=== PATIENT | female | born 1960 ===

== ENCOUNTER 2020-04-23 11:57 | Inpatient (IN) | payer MEDICARE, SELFPAY ==
[2020-04-23] VITALS (12 sets, daily range): BP systolic 121–172; BP diastolic 80–102; PULSE 65–67; RESP 14–19; TEMP 36.2–37.2; O2SAT 97–99
--- NOTE | 2020-04-23 12:19 | XRR_ITS ---
PROCEDURE INFORMATION: Exam: XR Chest, 1 View Exam date and time: 04/23/2020 12:27 PM Age: 60 years old Clinical indication: Other: HTN; Prior surgery; Surgery type: Pacemaker TECHNIQUE: Imaging protocol: XR of the chest Views: 1 view. COMPARISON: No relevant prior studies available. FINDINGS: Lungs: Unremarkable. No consolidation. Pleural space: Unremarkable. No pleural effusion. No pneumothorax. Heart/Mediastinum: The cardiac silhouette appears enlarged, some of which is magnification related to the AP projection.. Lucency about the right heart border and the superior mediastinum. Suspected prior interposition. Pneumo mediastinum felt less likely. Recommend two view chest. Vasculature: Pacemaker is present via a left subclavian approach.Surgical clips in the midline of the abdomen. Bones/joints: Unremarkable. Gastrointestinal tract: Air-filled bowel below the diaphragm XR/XR chest 1V portable [id number] IMPRESSION: Lucency about the right heart border and the superior mediastinum. Suspected prior interposition. Pneumo mediastinum felt less likely. Recommend two view chest.
--- NOTE | 2020-04-23 12:19 | ECG_ITS ---
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 Measurements Intervals [place] Rate: 67 P: [place]: -1 QRS: -90 QRSD: 108 T: 82 QT: 442 QTc: 468 Interpretive Statements UNCERTAIN IRREGULAR RHYTHM ELECTRONIC VENTRICULAR PACEMAKER -- CONTOUR ANALYSIS BASED ON INTRINSIC RHYTHM LEFT AXIS DEVIATION [QRS AXIS < -30] S1-S2-S3 PATTERN, CONSISTENT WITH PULMONARY DISEASE, RVH, OR NORMAL VARIANT INCOMPLETE RIGHT BUNDLE BRANCH BLOCK [90+ ms QRS DURATION, TERMINAL R IN V1/V2, 40+ ms S IN I/aVL/V4/V5/V6] ANTERIOR MYOCARDIAL INFARCTION , OF INDETERMINATE AGE [40+ ms Q WAVE AND/OR ST/T ABNORMALITY IN V3/V4] MODERATE T-WAVE ABNORMALITY, CONSIDER LATERAL ISCHEMIA [-0.1+ mV T WAVE IN I/aVL/V5/V6] No previous ECG available for comparison Electronically Signed On 04-23-2020 23:42:59 CDT by Vivian Krueger M.D. [id number]
--- NOTE | 2020-04-23 12:24 | W.ED.GENADLT ---
Documented by User: ADA Julian 04/23/20 12:25 HPI - General Adult General: Chief complaint: General Medical Stated complaint: high bp Time Seen by Provider: 04/23/20 12:10 History of Present Illness: HPI narrative: Patient states [place] and was told that prior to leaving that her pacemaker had a short battery life left. And she said she down to 2 days now and they decided they want to get the pacemaker battery changed here instead of going back down to that area. Patient said her blood pressure is up because her pacemaker is not functioning correctly. 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 Onset (ago): day(s) Associated symptoms: Deny chest pain, dyspnea, headache(s), nausea, rash or vomiting Review of Systems Const: Denies: fever(s), chills or body aches Eyes: Denies: change in vision or blurry vision ENMT: Denies: throat pain or nasal congestion Card: Reports: other (Hypertension); Denies: chest pain or dyspnea on exertion Resp: Denies: dyspnea, productive cough or non-productive cough GI: Denies: abdominal pain, nausea or vomiting Musc: Denies: extremity pain Skin/Breast: Denies: rash Neuro: Denies: headache(s) Psych: Denies: anxiety or depression Murali/Lymph: Denies: easy bruising Physical Exam Narrative: EXAM NARRATIVE: She has kind of a neurally scratchy voice from an damaged vocal cord Const: COMMON NORMALS: no acute distress, average body habitus and patient oriented x3 HENMT: COMMON NORMALS: normocephalic HEAD & SCALP: normal to inspection and normocephalic FACE & SINUS: normal facial exam Eye: COMMON NORMALS: conjunctivae normal GENERAL EYE: appearance normal, both eyes and all related structures CONJUNCTIVA: Yes conjunctivae normal Neck/C-Spine: COMMON NORMALS: no JVD Chest: COMMONS NORMALS: normal inspection of the chest Resp: COMMON NORMALS: normal respiratory effort and clear to auscultation bilaterally AUSCULTATION: clear to auscultation bilaterally Cardio: COMMON NORMALS: no JVD, regular rate and regular rhythm RATE: regular rate RHYTHM: regular rhythm GI: COMMON NORMALS: Normal to inspection, nondistended, normoactive bowel sounds present Extremity: COMMON NORMALS: normal to inspection and full ROM Neuro: COMMON NORMALS: patient oriented x3 Course Vital Signs: Vital signs: Vital Signs Temperature 97.2 F L 04/23/20 12:06 Pulse Rate 66 04/23/20 13:59 Respiratory Rate 18 04/23/20 13:59 Blood Pressure 121/86 04/23/20 13:59 Pulse Oximetry 98 04/23/20 13:59 MDM - General Adult Lab Data: Labs: Lab Results 04/23/20 04/23/20 04/23/20 Range/Units 12:50 12:50 12:50 WBC 4.8 (4.0-10.0) 10^3/ uL RBC 4.09 L (4.1-5.3) 10^6/u L Hgb 11.2 L (11.5-15.3) g/dL Hct 36.8 L (37.0-47.0) % MCV 90.0 (81-99) fL MCH 27.4 L (28.0-34.0) pg MCHC 30.4 (30.0-36.0) g/dL RDW 15.5 H (12.1-15.1) % Plt Count 285 (130-400) 10^3/c mm MPV 10.9 H (7.4-10.4) fL Neut % (Auto) 67.5 % Lymph % (Auto) 18.0 % [facility] % (Auto) 7.9 % Eos % (Auto) 5.4 % Baso % (Auto) 0.8 % Neut # (Auto) 3.26 (1.8-7.7) 10^3/u L Lymph # (Auto) 0.9 (0.8-4.8) 10^3/u L [facility] # (Auto) 0.4 (0.2-0.9) 10^3/u L Eos # (Auto) 0.3 (0.0-0.8) 10^3/u L Baso # (Auto) 0.0 (0.0-0.1) 10^3/u L Nucleated RBC % (a uto) 0 % Nucleated RBCs # 0.0 /100WBC PT 12.70 (12.1-14.9) SECO NDS INR 0.93 (0.8-1.2) Sodium 145 (136-145) mmol/L Potassium 3.6 (3.5-5.1) mmol/L Chloride 104 (98-107) mmol/L Carbon Dioxide 32 H (22-29) mmol/L Anion Gap 12.6 (5-19) BUN 11 (6-20) mg/dL Creatinine 0.7 (0.5-0.9) mg/dL GFR Calculation 85.6 L (90-130) mL/min Glucose 110 (65-115) mg/dL Calculated Osmolal ity 297 H (285-295) mOsm/k g Calcium 9.4 (8.5-10.5) mg/dL Total Bilirubin 0.2 (0.15-1.2) mg/dL AST 21 (0-32) U/L ALT 15 (0-33) U/L Alkaline Phosphata se 77 (35-105) IU/L Total Protein 6.4 L (6.6-8.7) g/dL Albumin 3.8 (3.5-5.2) g/dL Globulin 2.6 (1.3-4.6) g/dL Discharge Plan Discharge Prescriptions: No Action losartan 50 mg Tablet 50 mg PO DAILY RF: 0 tizanidine 4 mg tablet 4 mg PO TID PRN (Reason: muscle spasms) RF: 0 ondansetron HCl 4 mg tablet 4 mg PO TID PRN (Reason: n/v) RF: 0 lorazepam 2 mg tablet 2 mg PO DAILY RF: 0 Protonix 40 mg tablet,delayed release (DR/EC) 40 mg PO DAILY RF: 0 Benadryl Allergy 25 mg Tablet 25 mg PO BID RF: 0 mirtazapine 45 mg tablet 45 mg PO BEDTIME PRN (Reason: Sleep) RF: 0 Headache Relief (NHV-rchw-xyw) 250-250-65 mg Tablet 1 tab PO Q6H PRN (Reason: Headache) RF: 0 duloxetine 60 mg capsule,delayed release(DR/EC) 60 mg PO DAILY RF: 0 Sign Out Sign Out Data: Patient Sign Out occurred on 04/23/20 at 13:42. Patient's care was discussed, and care was transferred from to Viji Buckner. Coding Level of Care Code ED Trimming Cutter Machine for Faustin[employer] Fwd Exam Comprehensive Documented by User: Viji Buckner 04/23/20 14:17 HPI - General Adult General: Chief complaint: General Medical Stated complaint: high bp Time Seen by Provider: 04/23/20 12:10 Course Vital Signs: Vital signs: Vital Signs Temperature 97.2 F L 04/23/20 12:06 Pulse Rate 66 04/23/20 13:59 Respiratory Rate 18 04/23/20 13:59 Blood Pressure 121/86 04/23/20 13:59 Pulse Oximetry 98 04/23/20 13:59 MDM - General Adult MDM Narrative: Medical decision making narrative: Patient was seen and examined by me. I agree with Olvin Hernandez's assessment and plan. The case was discussed by me with Dr. Ivan and Dr. Alicia, they agreed to admit and consult respectively. Lab Data: Labs: Lab Results 04/23/20 04/23/20 04/23/20 Range/Units 12:50 12:50 12:50 WBC 4.8 (4.0-10.0) 10^3/ uL RBC 4.09 L (4.1-5.3) 10^6/u L Hgb 11.2 L (11.5-15.3) g/dL Hct 36.8 L (37.0-47.0) % MCV 90.0 (81-99) fL MCH 27.4 L (28.0-34.0) pg MCHC 30.4 (30.0-36.0) g/dL RDW 15.5 H (12.1-15.1) % Plt Count 285 (130-400) 10^3/c mm MPV 10.9 H (7.4-10.4) fL Neut % (Auto) 67.5 % Lymph % (Auto) 18.0 % [facility] % (Auto) 7.9 % Eos % (Auto) 5.4 % Baso % (Auto) 0.8 % Neut # (Auto) 3.26 (1.8-7.7) 10^3/u L Lymph # (Auto) 0.9 (0.8-4.8) 10^3/u L [facility] # (Auto) 0.4 (0.2-0.9) 10^3/u L Eos # (Auto) 0.3 (0.0-0.8) 10^3/u L Baso # (Auto) 0.0 (0.0-0.1) 10^3/u L Nucleated RBC % (a uto) 0 % Nucleated RBCs # 0.0 /100WBC PT 12.70 (12.1-14.9) SECO NDS INR 0.93 (0.8-1.2) Sodium 145 (136-145) mmol/L Potassium 3.6 (3.5-5.1) mmol/L Chloride 104 (98-107) mmol/L Carbon Dioxide 32 H (22-29) mmol/L Anion Gap 12.6 (5-19) BUN 11 (6-20) mg/dL Creatinine 0.7 (0.5-0.9) mg/dL GFR Calculation 85.6 L (90-130) mL/min Glucose 110 (65-115) mg/dL Calculated Osmolal ity 297 H (285-295) mOsm/k g Calcium 9.4 (8.5-10.5) mg/dL Total Bilirubin 0.2 (0.15-1.2) mg/dL AST 21 (0-32) U/L ALT 15 (0-33) U/L Alkaline Phosphata se 77 (35-105) IU/L Total Protein 6.4 L (6.6-8.7) g/dL Albumin 3.8 (3.5-5.2) g/dL Globulin 2.6 (1.3-4.6) g/dL Discharge Plan Discharge Prescriptions: No Action losartan 50 mg Tablet 50 mg PO DAILY RF: 0 tizanidine 4 mg tablet 4 mg PO TID PRN (Reason: muscle spasms) RF: 0 ondansetron HCl 4 mg tablet 4 mg PO TID PRN (Reason: n/v) RF: 0 lorazepam 2 mg tablet 2 mg PO DAILY RF: 0 Protonix 40 mg tablet,delayed release (DR/EC) 40 mg PO DAILY RF: 0 Benadryl Allergy 25 mg Tablet 25 mg PO BID RF: 0 mirtazapine 45 mg tablet 45 mg PO BEDTIME PRN (Reason: Sleep) RF: 0 Headache Relief (YHN-ofrh-fhk) 250-250-65 mg Tablet 1 tab PO Q6H PRN (Reason: Headache) RF: 0 duloxetine 60 mg capsule,delayed release(DR/EC) 60 mg PO DAILY RF: 0 Sign Out Sign Out Data: Patient Sign Out occurred on 04/23/20 at 13:42. Patient's care was discussed, and care was transferred from to Viji Buckner. Coding Level of Care Code ED Trimming Cutter Machine for Chg Fwd Exam Comprehensive
[2020-04-23 12:56] LABS: Basophils % 0.8 %; Eosinophils # 0.3 10^3/uL (0.0-0.8); Eosinophils % 5.4 %; Hematocrit 36.8 % (37.0-47.0); Hemoglobin 11.2 g/dL (11.5-15.3); Lymphocytes # 0.9 10^3/uL (0.8-4.8); Mean Corpuscular HGB Conc 30.4 g/dL (30.0-36.0); Mean Corpuscular Hemoglobin 27.4 pg (28.0-34.0); Mean Platelet Volume 10.9 fL (7.4-10.4); Monocytes # 0.4 10^3/uL (0.2-0.9); Monocytes % 7.9 %; Neutrophils # 3.26 10^3/uL (1.8-7.7); Neutrophils % 67.5 %; Nucleated Red Blood Cells % 0 %; Platelet Count 285 10^3/cmm (130-400); Red Blood Count 4.09 10^6/uL (4.1-5.3); Red Cell Distribution Width 15.5 % (12.1-15.1); White Blood Count 4.8 10^3/uL (4.0-10.0)
--- NOTE | 2020-04-23 12:56 | XRR_ITS ---
PROCEDURE INFORMATION: Exam: XR Chest, 2 Views Exam date and time: 04/23/2020 1:02 PM Age: 60 years old Clinical indication: Abnormal findings; Abnormal radiologic exam of lung or chest; Additional info: Per radiologist TECHNIQUE: Imaging protocol: XR of the chest Views: 2 views. COMPARISON: CR XR chest 1V portable [id number] 04/23/2020 12:19 PM FINDINGS: Lungs: Unremarkable. No consolidation. Pleural space: Unremarkable. No pleural effusion. No pneumothorax. Heart/Mediastinum: There appears to be bowel loops specifically: Extending into the right pericardial and mediastinal projections. This finding has the appearance of a colonic interposition. Correlation with prior surgical history is suggested. No cardiomegaly. If additional imaging is required CT examination of the chest is recommended with multi planar reconstruction. Bones/joints: Unremarkable. A cardiac pacemaker is in place in the left chest stable since prior XR/XR chest 2V* [id number] IMPRESSION: 1. Apparent colonic interposition. Follow-up as recommended above 2. Cardiac pacemaker left chest
[2020-04-23 13:12] LABS: INR 0.93 (0.8-1.2)
[2020-04-23 13:18] LABS: Alanine Aminotransferase 15 U/L (0-33); Albumin Level 3.8 g/dL (3.5-5.2); Alkaline Phosphatase 77 IU/L (35-105); Anion Gap 12.6 (5-19); Aspartate Amino Transferase 21 U/L (0-32); Blood Urea Nitrogen 11 mg/dL (6-20); Calcium 9.4 mg/dL (8.5-10.5); Carbon Dioxide 32 mmol/L (22-29); Chloride 104 mmol/L (98-107); Globulin 2.6 g/dL (1.3-4.6); Glomerular Filtration Rate 85.6 mL/min (90-130); Glucose 110 mg/dL (65-115); Osmolality Calculated 297 mOsm/kg (285-295); Potassium 3.6 mmol/L (3.5-5.1); Sodium 145 mmol/L (136-145); Total Bilirubin 0.2 mg/dL (0.15-1.2); Total Protein 6.4 g/dL (6.6-8.7)
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
--- NOTE | 2020-04-23 15:39 | PC.NURSE ---
Patient arrived to floor from ER. Audible wheezes heard, patient exhibited retractions and shortness of breath. Patient o2 sats 98% on RA. RT notified of findings, assess and treat entered. VSS. Patient denies pain at this time. Nurse to continue to monitor.
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
[2020-04-23] MEDS: diphenhydrAMINE 25 mg Capsule PO (17:54)
[2020-04-23] MEDS: ipratropium 0.5 mg/2.5 mL Neb INHALATION (18:19)
[2020-04-23] MEDS: levalbuterol 0.63 mg/3 mL Neb INHALATION (18:19)
--- NOTE | 2020-04-23 19:18 | PC.NURSE ---
Rounding: PAtient is resting in bed watching TV and eating. Patient is alert and oriented. Patient has a bedside commode. Will continue to monitor.
[2020-04-23] MEDS: mirtazapine 15 mg Tablet 45 MG PO (20:44)
[2020-04-23] MEDS: enoxaparin 30 mg/0.3 mL Syringe SUBCUT (23:57)
[2020-04-24] VITALS (11 sets, daily range): BP systolic 95–165; BP diastolic 80–93; PULSE 57–89; RESP 15–28; TEMP 36.6–36.8; O2SAT 85–99
[2020-04-24] MEDS: tizanidine 4 mg Tablet PO ×2 (03:24→20:47)
[2020-04-24 04:26] LABS: Basophils % 0.8 %; Eosinophils # 0.3 10^3/uL (0.0-0.8); Eosinophils % 6.5 %; Hematocrit 37.4 % (37.0-47.0); Hemoglobin 11.1 g/dL (11.5-15.3); Lymphocytes # 0.9 10^3/uL (0.8-4.8); Lymphocytes % 19.5 %; Mean Corpuscular HGB Conc 29.7 g/dL (30.0-36.0); Mean Corpuscular Hemoglobin 27.7 pg (28.0-34.0); Mean Corpuscular Volume 93.3 fL (81-99); Mean Platelet Volume 11.4 fL (7.4-10.4); Monocytes # 0.5 10^3/uL (0.2-0.9); Monocytes % 9.7 %; Neutrophils # 3.01 10^3/uL (1.8-7.7); Neutrophils % 63.3 %; Nucleated Red Blood Cells % 0 %; Platelet Count 264 10^3/cmm (130-400); Red Blood Count 4.01 10^6/uL (4.1-5.3); Red Cell Distribution Width 15.2 % (12.1-15.1); White Blood Count 4.8 10^3/uL (4.0-10.0)
[2020-04-24 04:51] LABS: Anion Gap 15.7 (5-19); Blood Urea Nitrogen 10 mg/dL (6-20); Calcium 8.4 mg/dL (8.5-10.5); Carbon Dioxide 25 mmol/L (22-29); Chloride 104 mmol/L (98-107); Glomerular Filtration Rate 102.3 mL/min (90-130); Glucose 77 mg/dL (65-115); Magnesium 1.9 mg/dL (1.7-2.3); Osmolality Calculated 287 mOsm/kg (285-295); Potassium 3.7 mmol/L (3.5-5.1); Sodium 141 mmol/L (136-145)
[2020-04-24 05:01] LABS: Thyroid Stimulating Hormone 3.34 uIU/mL (0.27-4.20)
--- NOTE | 2020-04-24 06:02 | PM.CONSULT ---
Providers/Reason For Consult Consulting Physican/Specialty*: Dr. Roberts/cardiothoracic surgery Reason for Consult*: Dual-chamber pacemaker LETICIA Attending Physician: Lena Ivan MD History of Present Illness History of Present Illness Ekaterina Tamayo is a 60 year old female who presented to the emergency department for evaluation for elective pacemaker generator exchange. She is recent moved to this area from [place] where she is been followed by community affairs director there and had been previously scheduled for a pacemaker generator exchange with her current generator hitting LETICIA in February. She is currently ventricular paced over 99%. Pacemaker was originally placed in 2009 due to third-degree heart block. Possible history is also complicated by esophageal dysmotility with also prior evaluation in [place] to consider esophageal replacement. She is had multiple esophageal dilatations. She currently is on a liquid diet having previously had a J-tube x3 placed, though dislodged. The most recent one was in place only a few days and dislodged in January. She is also had a prior PICC line for TPN supplementation, though it also is no longer and. Current diet includes clear Ensure. She does have a history of substantial weight loss and a prior history for bulimia which began at age 50 in relation to anxiety. At the initiation of that, she stated she weighed around 200 pounds. She also has vocal cord dysfunction related to her prior bulimia. Previous history of tobacco use though none now. No substantial history for alcohol use. She was evaluated yesterday by Dr. Alicia and I was contacted by her by phone to assist with pacemaker generator exchange. Review of Systems Const: Reports: change in weight (Slow progressive weight loss); Denies: fever(s), chills, fatigue or night sweats Eyes: Denies: change in vision or blurry vision ENMT: Reports: odynophagia and hoarseness Card: Denies: chest pain, palpitations, irregular heart rhythm or edema Resp: Denies: dyspnea or productive cough GI: Reports: dysphagia and heartburn; Denies: abdominal pain, nausea, vomiting or change in bowel habits : Denies: dysuria, urinary frequency, urinary urgency or urinary hesitancy Musc: Denies: extremity pain or extremity swelling Skin/Breast: Denies: rash Neuro: Denies: headache(s), numbness in extremities, weakness in extremities or sensory changes Psych: Denies: anxiety, depression or change in appetite Endo: Denies: polyuria, polydipsia or cold intolerance Murali/Lymph: Denies: easy bruising, easy bleeding, petechiae or enlarged lymph nodes Meds/Allergies Home Medications and Allergies Home Medications Medication Instructions Recorded Confirmed Last Taken Type edtppuk-kkxzsxkdbkqrs-bbvhfwot 1 tab PO Q6H PRN 04/23/20 04/23/20 04/23/20 History [Headache Relief (KEY-wxls-cei)] diphenhydramine HCl [Benadryl 25 mg PO BID 04/23/20 04/23/20 04/23/20 History Allergy] duloxetine 60 mg PO DAILY 04/23/20 04/23/20 04/23/20 History lorazepam 2 mg PO DAILY 04/23/20 04/23/20 04/18/20 History losartan 50 mg PO DAILY 04/23/20 04/23/20 04/23/20 History mirtazapine 45 mg PO BEDTIME PRN 04/23/20 04/23/20 04/22/20 History ondansetron HCl 4 mg PO TID PRN 04/23/20 04/23/20 04/16/20 History pantoprazole [Protonix] 40 mg PO DAILY 04/23/20 04/23/20 04/23/20 History tizanidine 4 mg PO TID PRN 04/23/20 04/23/20 04/23/20 History Allergies Allergy/AdvReac Type Severity Reaction Status Date / Time Beta-Blockers Allergy Unknown Verified 04/23/20 13:49 (Beta-Adrenergic Bloc erythromycin base Allergy ALGY-Hives Verified 04/23/20 13:49 Current Medications Current Medications Generic Name Dose Route Start Last Admin Trade Name Freq PRN Reason Stop Dose Admin Diphenhydramine HCl 25 mg 04/23/20 18:00 04/23/20 17:54 Benadryl PO 25 mg BID SIERRA Administration Enoxaparin Sodium 30 mg 04/23/20 23:00 04/23/20 23:57 Lovenox SUBCUT 30 mg Q24H SIERRA Administration Ipratropium Bruno 0.5 mg 04/23/20 18:04 04/23/20 18:19 Atrovent Neb INHALATION 0.5 mg Q4H.RESPIRATORY PRN Administration BRONCHOSPASM Levalbuterol HCl 0.63 mg 04/23/20 18:04 04/23/20 18:19 Xopenex INHALATION 0.63 mg Q4H.RESPIRATORY PRN Administration SHORTNESS OF BREATH Mirtazapine 45 mg 04/23/20 17:47 04/23/20 20:44 Remeron PO 45 mg BEDTIME PRN Administration Sleep Tizanidine HCl 4 mg 04/23/20 17:38 04/24/20 03:24 Zanaflex PO 4 mg TID PRN Administration muscle spasms PFSH Acute PFSH: Medical History Dysphagia Hypertension Protein calorie malnutrition Third degree AV block Surgical History Esophageal dilatation H/O section -x 2 History of colon resection Hx of cholecystectomy Pacemaker -initially placed in 2009 Family History Other CAD (coronary artery disease) Cancer Social History Smoking and tobacco status: former smoker Quit status (tobacco): has quit using tobacco Former quit date comment: 40 yrs ago Alcohol intake: never Substance/Drug Use: current Substance/Drug use frequency: few times a week Substance/Drug use type: Marijuana Household members: spouse Marital status: Vitals/I&O/Wt Last Vital Signs Temp 98.2 F 04/24/20 03:17 Pulse 65 04/24/20 03:17 Resp 15 04/24/20 03:17 BP 95/80 04/24/20 03:17 Pulse Ox 99 04/24/20 03:17 04/23/20 04/23/20 04/24/20 14:59 22:59 06:59 Intake Total 240 / 240 120 / 360 Output Total 250 / 250 Balance 240 / 240 -130 / 110 Weight last 48 hrs Weight 92 lb 6 oz Weight 90 lb Physical Exam Const: COMMON NORMALS: no acute distress and patient oriented x3; negative for average body habitus GENERAL APPEARANCE: frail appearing and appears older than stated age NUTRITIONAL APPEARANCE: cachectic HENMT: COMMON NORMALS: normocephalic; dentition not normal (Edentulous) HEAD & SCALP: normocephalic TEETH & GINGIVA: Yes edentulous Neck/C-Spine: COMMON NORMALS: full ROM and No carotid bruits Chest: COMMONS NORMALS: normal inspection of the chest (Chest wall in position in the left subclavicular region and lateral) Resp: COMMON NORMALS: normal respiratory effort, No use of accessory muscles and clear to auscultation bilaterally EFFORT & INSPECTION: Yes able to speak in complete sentences and Yes symmetric chest movement AUSCULTATION: clear to auscultation bilaterally Cardio: COMMON NORMALS: regular rate, regular rhythm, S1 normal heart sound present and No gallops present (Cardio) RATE: regular rate RHYTHM: regular rhythm HEART SOUNDS: S1 normal heart sound present BRUITS: no abdominal aortic bruits PERIPHERAL PULSES: radial pulses present positive bilateral 2+ Neuro: COMMON NORMALS: patient oriented x3, moves all extremities, no focal motor deficits and no sensory deficits noted Psych: COMMON NORMALS: mental status grossly normal, Normal thought process present and normal affect ATTITUDE: Yes engaged THOUGHT PROCESS: Normal thought process present A&P Assessment and plan (1) Pacemaker generator end of life: Dual-chamber pacemaker generator at [facility]. Originally placed in 2009. Plan: We will schedule for pacemaker generator exchange in the morning. Details of the procedure carefully and frankly discussed with Ms. Tamayo. All questions answered. Proper consents will be provided for review and signature. Status: Acute Consult Attestations Medical Necessity Statement: Pacemaker [facility] Time Spent in Patient Care: Greater than 35 minutes Coding Level of Care Code New Pt Acute Motivational Speaker for Chg Fwd Patient Type New Exam Comprehensive Medical Decision Making Moderate Complexity Diagnoses Pacemaker generator end of life Z45.010 Time Spent (min) 40
--- NOTE | 2020-04-24 06:25 | PC.NURSE ---
Rounding: Rounded with Dr. Batista about patients procedure tomorrow. Patient had a uneventful shift. Will continue to monitor.
--- NOTE | 2020-04-24 07:19 | PC.NURSE ---
US at bedside performing echo. Patient denies any pain or other complaints at this time. Nurse to continue to monitor.
[2020-04-24] MEDS: chlorhexidine gluconate 4% Btl 118 mL 1 APPLIC TOPICAL (08:15)
[2020-04-24] MEDS: losartan 50 mg Tablet PO (08:15)
[2020-04-24] MEDS: pantoprazole DR 40 mg Tablet PO (08:16)
[2020-04-24] MEDS: LORazepam 2 mg Tablet PO (08:16)
[2020-04-24] MEDS: duloxetine 60 mg Capsule PO (08:16)
--- NOTE | 2020-04-24 10:32 | PC.CHAP ---
Pastoral Care Encounter/Spiritual Assessment Type of Contact [] Declined slat basket maker helper visit [] Patient/Family/Request visit [] Outpatient visit [] Follow-up visit [] Physician referral [] Code/Alert [x] Routine visit [] Staff referral [] Actively dying [] Patient sleeping [] Family support [] [] Out of room [] Palliative care [] [] Receiving care in room [] Pre-surgical visit [] Trauma [] Long length of stay [] ICU visit [] Other: Relational/Emotional Strength [x] Patient feels connected with others/family/visitors/staff [] Distress [] Loneliness/isolation [] Abandonment Spirituality of Patient [x] Person of Renetta [] Attends Buddhism of their [place] [x] Believes in Prayer [] Reads Bible or Samaritan materials [] There are Spiritual issues to be addressed Hand Laster Interventions [x] Prayer [x] Active listening [x] Non-anxious presence [x] Spiritual/emotional support [] Crisis/trauma care [] Spiritual counseling [] Bereavement support [] Provided bereavement packet [] Provided Bible/devotional materials [] Provided toy/stuffed animal, coloring book to patient or family member [] Provided Communion [] Anointing/[place] [] Salvation [x] Completed spiritual assessment [] Other: Impact on Illness or Injury [] Angry [] Fearful [] Anxious [] Often cries [] Exhaustion [] Unable to work [] Unable to attend latter day [] Unable to walk/stand [] Unable to read [] Unable to drive [] Unable to eat/drink [] Unable to sleep [] Unable to be with family [] Patient intubated [] Other: Summary Chaplains Lance prayed with patient Time spent with patient 10 minutes
[2020-04-24] MEDS: acetaminophen 325 mg Tablet 650 MG PO (11:35)
[2020-04-24] MEDS: ondansetron 2 mg/ML SDV 2 mL 4 MG IVP ×2 (11:51→15:53)
--- NOTE | 2020-04-24 11:56 | P.PN_ITS ---
Subjective Subjective: Interval history: HR held in the 50-70 range overnight, normotensive, on RA, afebrile. Plan for pacemaker battery replacement tomorrow AM. Reports feeling well today, slept well overnight, no complaints this morning. Has had some intermittent nausea through the day, alleviated with Zofran. Screen for COVID-19 pending procedure tomorrow; negative. Medications: Reviewed: Yes Medication Review Details: Active Medications Generic Name Dose Route Start Last Admin Trade Name Freq PRN Reason Stop Dose Admin Acetaminophen 650 mg 04/23/20 17:38 04/24/20 11:35 Tylenol PO 650 mg Q6H PRN Administration Mild/Mod Pain Or Temp >/= 101 Chlorhexidine Gluc carlyle 1 applic 04/24/20 09:00 04/24/20 08:15 Betasept TOPICAL 1 applic DAILY [facility]ERRA Administration Diphenhydramine HC l 25 mg 04/23/20 18:00 04/24/20 08:16 Benadryl PO Not Given BID [facility]RA Duloxetine HCl 60 mg 04/24/20 09:00 04/24/20 08:16 Cymbalta PO 60 mg DAILY [facility] Administration Enoxaparin Sodium 30 mg 04/23/20 23:00 04/23/20 23:57 Lovenox SUBCUT 30 mg Q24H [facility]RA Administration Ipratropium Brom[place] e 0.5 mg 04/23/20 18:04 04/23/20 18:19 Atrovent Neb INHALATION 0.5 mg Q4H.RESPIRATORY P RN Administration BRONCHOSPASM Levalbuterol HCl 0.63 mg 04/23/20 18:04 04/23/20 18:19 Xopenex INHALATION 0.63 mg Q4H.RESPIRATORY P RN Administration SHORTNESS OF ARUN TH Lorazepam 2 mg 04/24/20 09:00 04/24/20 08:16 Ativan PO 2 mg DAILY [facility]ERRA Administration Losartan Potassium 50 mg 04/24/20 09:00 04/24/20 08:15 Cozaar PO 50 mg DAILY [facility] Administration Mirtazapine 45 mg 04/23/20 17:47 04/23/20 20:44 Remeron PO 45 mg BEDTIME PRN Administration Sleep Morphine Sulfate 2 mg 04/23/20 17:38 Morphine IVP Q4H PRN SEVERE PAIN Mupirocin 1 applic 04/24/20 09:00 04/24/20 08:17 Bactroban TOPICAL Not Given BID [facility]RA Ondansetron HCl 4 mg 04/24/20 11:45 04/24/20 11:51 Zofran IVP 4 mg Q6H PRN Administration NAUSEA AND VOMITI NG Pantoprazole Sodiu m 40 mg 04/24/20 09:00 04/24/20 08:16 Protonix PO 40 mg DAILY [facility] Administration Tizanidine HCl 4 mg 04/23/20 17:38 04/24/20 03:24 Zanaflex PO 4 mg TID PRN Administration muscle spasms Beta-Blockers (Beta-Adrenergic Bloc Allergy (Verified 04/23/20 13:49) Unknown erythromycin base Allergy (Verified 04/23/20 13:49) ALGY-Hives Vitals/I&O/Wt Last Vital Signs Temp 97.9 F 04/24/20 11:22 Pulse 57 L 04/24/20 11:22 Resp 20 H 04/24/20 11:22 BP 146/88 04/24/20 11:22 Pulse Ox 96 04/24/20 11:22 04/23/20 04/24/20 04/24/20 22:59 06:59 14:59 Intake Total 240 / 240 120 / 360 120 / 120 Output Total 250 / 250 Balance 240 / 240 -130 / 110 120 / 120 Weight last 48 hrs Weight 41.901 kg Weight 40.823 kg Physical Exam Const: COMMON NORMALS: no acute distress, patient oriented x3 and alert GENERAL APPEARANCE: cooperative and comfortable NUTRITIONAL APPEARANCE: thin ORIENTATION/CONSCIOUSNESS: Yes awake OTHER: -very pleasant HENMT: COMMON NORMALS: normocephalic, atraumatic, hearing grossly normal bilaterally and moist oral mucous membranes HEAD & SCALP: normocephalic and atraumatic Eye: COMMON NORMALS: Equal, round and reactive pupils present, EOMs intact bilaterally and conjunctivae normal CONJUNCTIVA: Yes conjunctivae normal PUPIL: Yes Equal, round and reactive pupils present Neck/C-Spine: COMMON NORMALS: full ROM GENERAL: Yes normal visual inspection and Yes trachea midline Chest: CHEST: Yes Pacemaker present Resp: COMMON NORMALS: normal respiratory effort, No retractions, No use of accessory muscles and clear to auscultation bilaterally EFFORT & INSPECTION: Yes able to speak in complete sentences, Yes symmetric chest movement and No tachypneic AUSCULTATION: clear to auscultation bilaterally Cardio: COMMON NORMALS: regular rate, regular rhythm, S1 normal heart sound present, S2 normal heart sound present and No murmurs present (Cardio) RATE: regular rate RHYTHM: regular rhythm HEART SOUNDS: S1 normal heart sound present and S2 normal heart sound present GI: COMMON NORMALS: Normal to inspection, nondistended, normoactive bowel sounds present, Soft to palpation and non-tender PALPATION: Yes Soft to palpation Extremity: COMMON NORMALS: normal to inspection, full ROM and no clubbing, cyanosis or edema; negative for no pedal edema Neuro: COMMON NORMALS: patient oriented x3, moves all extremities, no focal motor deficits, no sensory deficits noted and gait normal SENSORIU M/ORIENTATION: Yes alert Psych: COMMON NORMALS: mental status grossly normal, Normal thought process present, cooperative, normal affect and speech normal SPEECH: Yes normal speech THOUGHT PROCESS: Normal thought process present Skin: COMMON NORMALS: no rashes or lesions noted, no jaundice, no petechiae and no mottling GENERAL SKIN EXAM: no rashes or lesions noted Data : 04/24/20 03:12 04/24/20 03:12 A&P Assessment and plan (1) Pacemaker: -pacemaker interrogation done in ER confirming that battery is at its end, recommended date of replacement was February 26, 2020 -Telemetry monitoring -Cardiology input appreciated, plan for battery replacement tomorrow by Dr. Roberts; NPO after midnight -Close monitoring of vital signs -screened for COVID-19: negative Status: Acute (2) Dysphagia: -Reported history of chronic dysphasia particularly to solids, has been on a full liquid diet -Has had multiple EGDs with prior esophageal dilatation procedures, pending possible esophagectomy -Aspiration precautions, on full liquid diet Status: Chronic Qualifiers: Dysphagia type: unspecified Qualified Code(s): R13.10 - Dysphagia, unspecified (3) Protein calorie malnutrition: -At least moderate protein calorie malnutrition in light of chronic dysphagia and associated weight loss -Unable to tolerate Ensure per her own admission Status: Chronic Qualifiers: Protein-calorie malnutrition severity: moderate Qualified Code(s): E44.0 - Moderate protein-calorie malnutrition (4) Hypertension: -Vital signs stable, continue to monitor -was hypertensive at home which is unusual for her -continue oral antihypertensives Status: Acute Qualifiers: Hypertension type: essential hypertension Qualified Code(s): I10 - Essential (primary) hypertension Additional A&P Information -FLD; NPO after midnight -GI ppx with PPI -DVT ppx with lovenox -Dispo: home -Code status: FULL code Attestations Medical Necessity Statement*: Patient requires hospitalization for continued telemetry monitoring pending pacemaker battery replacement tomorrow morning. Time Spent in Patient Care: 16 - 35 minutes (>than 50% of time spent in counselling and/or direct pt care on unit) . Coding Level of Care Code Acute [employer] Attendant for Chg Fwd Exam Comprehensive Diagnoses Pacemaker Z95.0 Dysphagia R13.10 Dysphagia type: unspecified Protein calorie malnutrition E44.0 Protein-calorie malnutrition severity: moderate Hypertension I10 Hypertension type: essential hypertension
[2020-04-24] MEDS: levalbuterol 0.63 mg/3 mL Neb INHALATION ×2 (15:51→21:57)
--- NOTE | 2020-04-24 16:00 | PC.NURSE ---
Nurse called to bedside. Patient dry heaving. Dr. Ivan notified that patient is nauseated but two hours remain for zofran dose. Dr. Ivan instructed nurse to administer zofran now and physician is to adjust frequency of zofran administration. RBVO. Nurse to continue to monitor.
[2020-04-24 16:27] LABS: SARS Covid-2 Antigen Negative (Negative)
--- NOTE | 2020-04-24 16:53 | PC.NURSE ---
Nurse called to room. Strider heard from door. Patient tells nurse she is having an asthma attack. Respiratory notified. Breathing treatment was administered. Dr. Ivan notified of event. No new orders received. Nurse to continue to monitor.
[2020-04-24] MEDS: diphenhydrAMINE 25 mg Capsule PO (17:11)
--- NOTE | 2020-04-24 18:48 | PC.NURSE ---
Dr. Roberts, Dr. Alicia, and Dr. Ivan notified that patient does not have current COVID PCR test for procedure in am. Current plan is to keep patient NPO after midnight and collect PCR swab. Physicians will collaborate in am and adjust plan of care accordingly.
--- NOTE | 2020-04-24 19:38 | P.PN_ITS ---
Subjective Subjective: Interval history: No acute events. She feels well. Medications: Reviewed: Yes Medication Review Details: Current Medications Acetaminophen (Tylenol) 650 mg PO Q6H PRN PRN Reason: Mild/Mod Pain Or Temp >/= 101 Last Admin: 04/24/20 11:35 Dose: 650 mg Documented by: Chlorhexidine Gluconate (Betasept) 1 applic TOPICAL DAILY [facility], [facility] Last Admin: 04/24/20 08:15 Dose: 1 applic Documented by: Diphenhydramine HCl (Benadryl) 25 mg PO BID [facility] Last Admin: 04/24/20 17:11 Dose: 25 mg Documented by: Duloxetine HCl (Cymbalta) 60 mg PO DAILY [facility] Last Admin: 04/24/20 08:16 Dose: 60 mg Documented by: Enoxaparin Sodium (Lovenox) 30 mg SUBCUT Q24H [facility] Last Admin: 04/23/20 23:57 Dose: 30 mg Documented by: Ipratropium [place] (Atrovent Neb) 0.5 mg INHALATION Q4H.RESPIRATORY PRN PRN Reason: BRONCHOSPASM Last Admin: 04/23/20 18:19 Dose: 0.5 mg Documented by: Levalbuterol HCl (Xopenex) 0.63 mg INHALATION Q4H.RESPIRATORY PRN PRN Reason: SHORTNESS OF BREATH Last Admin: 04/24/20 15:51 Dose: 0.63 mg Documented by: Lorazepam (Ativan) 2 mg PO DAILY [facility] Last Admin: 04/24/20 08:16 Dose: 2 mg Documented by: Losartan Potassium (Cozaar) 50 mg PO DAILY [facility] Last Admin: 04/24/20 08:15 Dose: 50 mg Documented by: Mirtazapine (Remeron) 45 mg PO BEDTIME PRN PRN Reason: Sleep Last Admin: 04/23/20 20:44 Dose: 45 mg Documented by: Morphine Sulfate (Morphine) 2 mg IVP Q4H PRN PRN Reason: SEVERE PAIN Mupirocin (Bactroban) 1 applic TOPICAL BID [facility] Last Admin: 04/24/20 17:14 Dose: Not Given Documented by: Ondansetron HCl (Zofran) 4 mg IVP Q4H PRN PRN Reason: NAUSEA AND VOMITING Pantoprazole Sodium (Protonix) 40 mg PO DAILY [facility] Last Admin: 04/24/20 08:16 Dose: 40 mg Documented by: Tizanidine HCl (Zanaflex) 4 mg PO TID PRN PRN Reason: muscle spasms Last Admin: 04/24/20 03:24 Dose: 4 mg Documented by: Vitals/I&O/Wt Last Vital Signs Temp 98.3 F 04/24/20 16:00 Pulse 84 04/24/20 16:00 Resp 17 04/24/20 16:00 BP 124/93 04/24/20 16:00 Pulse Ox 96 04/24/20 16:00 04/24/20 04/24/20 04/24/20 06:59 14:59 22:59 Intake Total 120 / 360 120 / 120 Output Total 250 / 250 Balance -130 / 110 120 / 120 Weight last 48 hrs Weight 92 lb 6 oz Weight 90 lb Physical Exam Const: COMMON NORMALS: no acute distress, patient oriented x3 and alert GENERAL APPEARANCE: cooperative, comfortable, well kempt and well hydrated HENMT: COMMON NORMALS: normocephalic, atraumatic, hearing grossly normal bilaterally and external ears normal HEAD & SCALP: normocephalic and atraumatic EXTERNAL EAR: Yes external ears normal MOUTH: lip normal Eye: COMMON NORMALS: Equal, round and reactive pupils present, EOMs intact bilaterally, conjunctivae normal and no scleral icterus GENERAL EYE: appearance normal, both eyes and all related structures ALIGNMENT: Yes alignment normal EYELID: eyelids normal CONJUNCTIVA: Yes conjunctivae normal SCLERA: sclerae normal PUPIL: Yes Equal, round and reactive pupils present Neck/C-Spine: COMMON NORMALS: no lymphadenopathy, supple, no JVD and Thyroid normal GENERAL: Yes normal visual inspection and No Mass present (neck) THYROID: Thyroid normal CAROTIDS: Yes normal carotid upstroke CERVICAL SPINE: Yes cervical ROM normal Lymph: LYMPHATIC: no lymphadenopathy noted Chest: COMMONS NORMALS: normal inspection of the chest and normal palpation of entire chest wall CHEST: Yes Symmetrical chest wall rise, No mass, No tenderness, No Surgical scars present (Chest) and No rash BREAST/AXILLA INSPECTION: Yes normal inspection of the axillae Resp: COMMON NORMALS: clear to auscultation bilaterally and percussion normal AUSCULTATION: clear to auscultation bilaterally, no crackles, no rales, no rhonchi, no wheezes, vesicular breath sounds and other (left upper chest PPM in situ) PERCUSSION: percussion normal Cardio: COMMON NORMALS: no JVD, regular rate, regular rhythm, S1 normal heart sound present, S2 normal heart sound present and Peripheral pulses 2+ throughout PALPATION: normal PMI RATE: regular rate RHYTHM: regular rhythm HEART SOUNDS: S1 normal heart sound present, S2 normal heart sound present, no gallops and no murmurs BRUITS: no carotid bruits PERIPHERAL PULSES: Peripheral pulses 2+ throughout, radial pulses present, posterior tibial pulses present and dorsalis pedis present Extremity: GENERAL: No cyanosis, Yes edema and No pallor Neuro: COMMON NORMALS: patient oriented x3, CN's II-XII intact bilaterally, no focal motor deficits and gait normal SENSORIUM/ORIENTATION: Yes alert Psych: COMMON NORMALS: Normal thought process present and speech normal APPEARANCE: Yes well kempt SPEECH: Yes normal speech MOOD & AFFECT: Yes euthymic mood THOUGHT PROCESS: Normal thought process present THOUGHT CONTENT: Yes Normal thought content present Data : 04/24/20 03:12 04/24/20 03:12 A&P Assessment and plan (1) Pacemaker generator end of life: -Plan for PPM gen change on Thursday. -continue to monitor closely in the interim. Status: Acute (2) Pacemaker: s/p PPM placement in 2009 Status: Acute (3) Hypertension: Status: Acute Qualifiers: Hypertension type: essential hypertension Qualified Code(s): I10 - Essential (primary) hypertension (4) Protein calorie malnutrition: Status: Chronic Qualifiers: Protein-calorie malnutrition severity: moderate Qualified Code(s): E44.0 - Moderate protein-calorie malnutrition Additional A&P Information Dysphasia h/o esophageal stricture h/o Achalasia s/p surgery Anemia Thank you for allowing me to participate in patient's care. Please feel free to call with questions or concerns. Attestations Medical Necessity Statement*: Needs hospital stay for generator change for device at [facility] on 02/26/20. Coding Level of Care Code Acute Flight Line Mechanic for Chg Fwd Diagnoses Pacemaker generator end of life Z45.010 Pacemaker Z95.0 Hypertension I10 Hypertension type: essential hypertension Protein calorie malnutrition E44.0 Protein-calorie malnutrition severity: moderate
[2020-04-24] MEDS: mirtazapine 15 mg Tablet 45 MG PO (20:47)
[2020-04-24] MEDS: ipratropium 0.5 mg/2.5 mL Neb INHALATION (21:57)
[2020-04-24] MEDS: enoxaparin 30 mg/0.3 mL Syringe SUBCUT (22:12)
--- NOTE | 2020-04-24 22:50 | USCV_ITS ---
BelkisEkaterina Age: 60 Gender: F : 1960 Exam Date: 04/24/2020 07:18 Ordering Phys: Lena Ivan MD Technologist: Jed Tavares Exam Location: [facility] [place] Indication: CP SOB BP: 123 / 66 HR: 65 Rhythm: Sinus Technical Quality: Fair MEASUREMENTS (Male / Female) Normal Values 2D ECHO LV Diastolic Diameter PLAX 2.9 cm 4.2 - 5.9 / 3.9 - 5.3 cm LV Systolic Diameter PLAX 2.6 cm IVS Diastolic Thickness 1.0 cm 0.6 - 1.0 / 0.6 - 0.9 cm IVS Systolic Thickness 1.1 cm LVPW Diastolic Thickness 0.9 cm 0.6 - 1.0 / 0.6 - 0.9 cm LVPW Systolic Thickness 1.1 cm LVOT Diameter 2.0 cm LV Ejection Fraction 2D Teich 22.4 % LV Ejection Fraction MOD 2C 60.9 % LV Ejection Fraction 2C AL 59.0 % LA Diameter 2.4 cm LA Width 3.6 cm LA Height 3.6 cm RA Width 3.2 cm RA Height 4.9 cm M-MODE LV Diastolic Diameter MM 3.7 cm 4.2 - 5.9 / 3.9 - 5.3 cm LV Systolic Diameter MM 2.5 cm LV Ejection Fraction MM Teich 61.2 % IVS Diastolic Thickness MM 0.8 cm 0.6 - 1.0 / 0.6 - 0.9 cm IVS Systolic Thickness MM 1.2 cm LVPW Diastolic Thickness MM 1.1 cm 0.6 - 1.0 / 0.6 - 0.9 cm LVPW Systolic Thickness MM 1.5 cm RV Diastolic Diameter MM 2.0 cm Aortic Annulus Diameter 3.1 cm LA Ao Ratio MM 0.8 MV E Point Septal Separation 0.7 cm DOPPLER AV Peak Velocity 103.0 cm/s LVOT Peak Velocity 64.0 cm/s AV Area Cont Eq vti 2.0 cm squared AV Area Cont Eq pk 2.0 cm squared MV Area PHT 4.3 cm squared Mitral E to A Ratio 0.9 MV E' Velocity 68.0 cm/s Mitral E to LV E' Septal Ratio 7.0 TR Peak Velocity 237.0 cm/s TR Peak Gradient 22.5 mmHg TV Peak E Velocity 81.0 cm/s Right Atrial Pressure 3.0 mmHg Pulmonary Artery Systolic Pressu 25.5 mmHg FINDINGS Left Ventricle Normal left ventricular cavity size. Normal left ventricular wall thickness. Mildly decreased left ventricular systolic function. Left ventricular ejection fraction is estimated at 45- 50 %. No regional wall motion abnormalities. Abnormal septal motion consistent with pacemaker. Right Ventricle Normal right ventricular size and systolic function. Right ventricular systolic pressure 25.5 mmHg. Pacemaker wire visualized in the right ventricle. Right Atrium Normal right atrial size. Pacemaker wire in the right atrial cavity. Left Atrium Left atrium not well visualized. Probably normal left atrial size. Mitral Valve Structurally normal mitral valve. No mitral valve stenosis. Trace mitral valve regurgitation. Aortic Valve Structurally normal trileaflet aortic valve. No aortic valve stenosis. Trace aortic valve regurgitation. Tricuspid Valve Structurally normal tricuspid valve. No tricuspid valve stenosis. Trace to mild tricuspid valve regurgitation. Pulmonic Valve Structurally normal pulmonic valve. No pulmonary valve stenosis. No significant pulmonary valve regurgitation. Pericardium No pericardial effusion. Normal-sized inferior vena cava. Aorta Normal size aortic root and proximal ascending aorta. CONCLUSIONS 1. Normal left ventricular cavity size. Normal left ventricular wall thickness. Mildly decreased left ventricular systolic function. Left ventricular ejection fraction is estimated at 45- 50 %. No regional wall motion abnormalities. 2. Normal right ventricular size and systolic function. 3. No significant valvular abnormality. 4. No prior similar studies to compare. Flora Alicia MD (Electronically Signed) Final Date: 24 April 2020 16:27 S
[2020-04-25] VITALS (13 sets, daily range): BP systolic 125–181; BP diastolic 73–98; PULSE 66–88; RESP 16–30; TEMP 36.3–37.4; O2SAT 92–98
[2020-04-25] MEDS: ondansetron 2 mg/ML SDV 2 mL 4 MG IVP (02:03)
[2020-04-25] MEDS: chlorhexidine gluconate 4% Btl 118 mL 1 APPLIC TOPICAL (08:00)
[2020-04-25] MEDS: sodium chloride 0.9% 1,000 ML 30 ML IV (09:46)
--- NOTE | 2020-04-25 09:52 | ANES.PREANE2 ---
Pre-Anesthetic Assessment Pre-Anesthetic Assessment: Height/Weight: Height 16.15 m Weight 41.901 kg Temp Pulse Resp BP Pulse Ox 98.1 F 66 18 181/91 97 04/25/20 09:43 04/25/20 09:43 04/25/20 09:43 04/25/20 09:43 04/25/20 09:43 Preop Diagnosis: pacemaker end-of-life Proposed Procedure: Operation Date: 04/25/20 10:40 Proposed Procedures p Pacemaker Exchange(Not Applicable) - Alfa Roberts MD Familial anesthetic complications: None Was Beta Samy taken within 24 hours: N/A Last intake: NPO > 8 hrs Social: Social History: No alcohol and No tobacco Comment: secon hand smoke Exam: Pre-Anes Outpt Exam: alert, oriented x 3, clear to auscultation bilaterally and regular rate & rhythm Additional Exam Findings (including area of procedure): patient has coarse breath sounds - R> L recovering from pneumonia Airway: Cervical ROM: WNL MP: 1 Dentition: Other (no teeth) Pulmonary: Pulmonary: Asthma (allergic asthma) and Cough (d/t allergies) Comments: recovering pneumonia - was in hospital for 16 days, discharged march 12 per patient denies SOB, admits DUNAWAY CV/HEM: CV/HEM: HTN Comments: 3rd degree av block GI: GI: GERD Anesthetic Plan: ASA status: 4 Anesthesia: MAC Risk of > 500 ml blood loss (7ml/kg in children): No Meds/Allergies Current Medications: Current Medications Generic Name Dose Route Start Last Admin Trade Name Freq PRN Reason Stop Dose Admin Acetaminophen 650 mg 04/23/20 17:38 04/24/20 11:35 Tylenol PO 650 mg Q6H PRN Administration Mild/Mod Pain Or Temp >/= 101 Chlorhexidine Gluc carlyle 1 applic 04/24/20 09:00 04/25/20 08:00 Betasept TOPICAL 1 applic DAILY [facility] Administration Diphenhydramine HC l 25 mg 04/23/20 18:00 04/24/20 17:11 Benadryl PO 25 mg BID [facility] Administration Duloxetine HCl 60 mg 04/24/20 09:00 04/24/20 08:16 Cymbalta PO 60 mg DAILY [facility] Administration Enoxaparin Sodium 30 mg 04/23/20 23:00 04/24/20 22:12 Lovenox SUBCUT 30 mg Q24H [facility] Administration Sodium Chloride 1,000 mls @ 30 ml s/hr 04/25/20 09:00 04/25/20 09:46 Sodium Chloride 0.9% IV 04/26/20 08:59 30 mls/hr .Q24H [facility] Administration Ipratropium Bromid e 0.5 mg 04/23/20 18:04 04/24/20 21:57 Atrovent Neb INHALATION 0.5 mg Q4H.RESPIRATORY P RN Administration BRONCHOSPASM Levalbuterol HCl 0.63 mg 04/23/20 18:04 04/24/20 21:57 Xopenex INHALATION 0.63 mg Q4H.RESPIRATORY P RN Administration SHORTNESS OF ARUN TH Lorazepam 2 mg 04/24/20 09:00 04/24/20 08:16 Ativan PO 2 mg DAILY [facility] Administration Losartan Potassium 50 mg 04/24/20 09:00 04/24/20 08:15 Cozaar PO 50 mg DAILY [facility] Administration Mirtazapine 45 mg 04/23/20 17:47 04/24/20 20:47 Remeron PO 45 mg BEDTIME PRN Administration Sleep Mupirocin 1 applic 04/24/20 09:00 04/24/20 17:14 Bactroban TOPICAL Not Given BID [facility] Ondansetron HCl 4 mg 04/24/20 18:40 04/25/20 02:03 Zofran IVP 4 mg Q4H PRN Administration NAUSEA AND VOMITI NG Pantoprazole Sodiu m 40 mg 04/24/20 09:00 04/24/20 08:16 Protonix PO 40 mg DAILY [facility] Administration Tizanidine HCl 4 mg 04/23/20 17:38 04/24/20 20:47 Zanaflex PO 4 mg TID PRN Administration muscle spasms Additional Medication Information: Current Medications Acetaminophen (Tylenol) 650 mg PO Q6H PRN PRN Reason: Mild/Mod Pain Or Temp >/= 101 Last Admin: 04/24/20 11:35 Dose: 650 mg Documented by: Chlorhexidine Gluconate (Betasept) 1 applic TOPICAL DAILY [facility] Last Admin: 04/24/20 08:15 Dose: 1 applic Documented by: Diphenhydramine HCl (Benadryl) 25 mg PO BID [facility] Last Admin: 04/24/20 17:11 Dose: 25 mg Documented by: Duloxetine HCl (Cymbalta) 60 mg PO DAILY [facility] Last Admin: 04/24/20 08:16 Dose: 60 mg Documented by: Enoxaparin Sodium (Lovenox) 30 mg SUBCUT Q24H [facility] Last Admin: 04/23/20 23:57 Dose: 30 mg Documented by: Ipratropium [place] (Atrovent Neb) 0.5 mg INHALATION Q4H.RESPIRATORY PRN PRN Reason: BRONCHOSPASM Last Admin: 04/23/20 18:19 Dose: 0.5 mg Documented by: Levalbuterol HCl (Xopenex) 0.63 mg INHALATION Q4H.RESPIRATORY PRN PRN Reason: SHORTNESS OF BREATH Last Admin: 04/24/20 15:51 Dose: 0.63 mg Documented by: Lorazepam (Ativan) 2 mg PO DAILY [facility] Last Admin: 04/24/20 08:16 Dose: 2 mg Documented by: Losartan Potassium (Cozaar) 50 mg PO DAILY [facility] Last Admin: 04/24/20 08:15 Dose: 50 mg Documented by: Mirtazapine (Remeron) 45 mg PO BEDTIME PRN PRN Reason: Sleep Last Admin: 04/23/20 20:44 Dose: 45 mg Documented by: Morphine Sulfate (Morphine) 2 mg IVP Q4H PRN PRN Reason: SEVERE PAIN Mupirocin (Bactroban) 1 applic TOPICAL BID [facility] Last Admin: 04/24/20 17:14 Dose: Not Given Documented by: Ondansetron HCl (Zofran) 4 mg IVP Q4H PRN PRN Reason: NAUSEA AND VOMITING Pantoprazole Sodium (Protonix) 40 mg PO DAILY [facility] Last Admin: 04/24/20 08:16 Dose: 40 mg Documented by: Tizanidine HCl (Zanaflex) 4 mg PO TID PRN PRN Reason: muscle spasms Last Admin: 04/24/20 03:24 Dose: 4 mg Documented by: PFS Anesthesia PFS: Medical History Dysphagia Hypertension Protein calorie malnutrition Third degree AV block Surgical History Esophageal dilatation H/O section -x 2 History of colon resection Hx of cholecystectomy Pacemaker -initially placed in 2009 Family History Other CAD (coronary artery disease) Cancer Social History Smoking and tobacco status: former smoker Quit status (tobacco): has quit using tobacco Former quit date comment: 40 yrs ago Alcohol intake: never Substance/Drug Use: current Substance/Drug use frequency: few times a week Substance/Drug use type: Marijuana Household members: spouse Marital status: Data Anesthesia CBC & Chem 7: 04/24/20 03:12 04/24/20 03:12 Other Labs: Laboratory Results - last 48 hr 04/23/20 04/23/20 04/23/20 12:50 12:50 12:50 WBC 4.8 RBC 4.09 L Hgb 11.2 L Hct 36.8 L MCV 90.0 MCH 27.4 L MCHC 30.4 RDW 15.5 H Plt Count 285 MPV 10.9 H Neut % (Auto) 67.5 Lymph % (Auto) 18.0 Starke % (Auto) 7.9 Eos % (Auto) 5.4 Baso % (Auto) 0.8 Neut # (Auto) 3.26 Lymph # (Auto) 0.9 Starke # (Auto) 0.4 Eos # (Auto) 0.3 Baso # (Auto) 0.0 Nucleated RBC % (auto) 0 Nucleated RBCs # 0.0 PT 12.70 INR 0.93 Sodium 145 Potassium 3.6 Chloride 104 Carbon Dioxide 32 H Anion Gap 12.6 BUN 11 Creatinine 0.7 GFR Calculation 85.6 L Glucose 110 Calculated Osmolality 297 H Calcium 9.4 Magnesium Total Bilirubin 0.2 AST 21 ALT 15 Alkaline Phosphatase 77 Total Protein 6.4 L Albumin 3.8 Globulin 2.6 TSH SARS-CoV-2 Ag (Rapid) 04/24/20 04/24/20 04/24/20 03:12 03:12 03:12 WBC 4.8 RBC 4.01 L Hgb 11.1 L Hct 37.4 MCV 93.3 MCH 27.7 L MCHC 29.7 L RDW 15.2 H Plt Count 264 MPV 11.4 H Neut % (Auto) 63.3 Lymph % (Auto) 19.5 Starke % (Auto) 9.7 Eos % (Auto) 6.5 Baso % (Auto) 0.8 Neut # (Auto) 3.01 Lymph # (Auto) 0.9 Starke # (Auto) 0.5 Eos # (Auto) 0.3 Baso # (Auto) 0.0 Nucleated RBC % (auto) 0 Nucleated RBCs # 0.0 PT INR Sodium 141 Potassium 3.7 Chloride 104 Carbon Dioxide 25 Anion Gap 15.7 BUN 10 Creatinine 0.6 GFR Calculation 102.3 Glucose 77 Calculated Osmolality 287 Calcium 8.4 L Magnesium 1.9 Total Bilirubin AST ALT Alkaline Phosphatase Total Protein Albumin Globulin TSH 3.34 SARS-CoV-2 Ag (Rapid) 04/24/20 15:35 WBC RBC Hgb Hct MCV MCH MCHC RDW Plt Count MPV Neut % (Auto) Lymph % (Auto) Starke % (Auto) Eos % (Auto) Baso % (Auto) Neut # (Auto) Lymph # (Auto) Starke # (Auto) Eos # (Auto) Baso # (Auto) Nucleated RBC % (auto) Nucleated RBCs # PT INR Sodium Potassium Chloride Carbon Dioxide Anion Gap BUN Creatinine GFR Calculation Glucose Calculated Osmolality Calcium Magnesium Total Bilirubin AST ALT Alkaline Phosphatase Total Protein Albumin Globulin TSH SARS-CoV-2 Ag (Rapid) Negative Cardiac Studies: No Data to Display
--- NOTE | 2020-04-25 10:45 | P.PN_ITS ---
Subjective Subjective: Interval history: Patient condition is unchanged. Remains stable. Vitals/I&O/Wt Last Vital Signs Temp 98.1 F 04/25/20 09:43 Pulse 66 04/25/20 09:43 Resp 18 04/25/20 09:43 BP 181/91 04/25/20 09:43 Pulse Ox 97 04/25/20 09:43 Weight last 48 hrs Weight 92 lb 6 oz Weight 90 lb Physical Exam Const: COMMON NORMALS: no acute distress; negative for healthy appearing NUTRITIONAL APPEARANCE: cachectic Chest: COMMONS NORMALS: normal palpation of entire chest wall (Left subclavian pacemaker generator easily palpable) Resp: COMMON NORMALS: normal respiratory effort, No retractions, No use of accessory muscles and clear to auscultation bilaterally AUSCULTATION: clear to auscultation bilaterally Cardio: COMMON NORMALS: regular rate, regular rhythm and S1 normal heart sound present RATE: regular rate RHYTHM: regular rhythm HEART SOUNDS: S1 normal heart sound present Data : 04/24/20 03:12 04/24/20 03:12 A&P Assessment and plan (1) Pacemaker: Pacemaker at LETICIA. Plan: Generator change today. Details discussed with patient. Proper consents have been provided for review and signature. Status: Acute Attestations Medical Necessity Statement*: Pacemaker at LETICIA Time Spent in Patient Care: less than 15 minutes Coding Level of Care Code Acute Safety Sealer for Marisa Jones Diagnoses Pacemaker Z95.0
[2020-04-25] MEDS: ceFAZolin 1,000 mg SDV 1000 MG IRRIGATION (11:44)
[2020-04-25] MEDS: lidocaine 1% INJ 20 mL (11:45)
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
--- NOTE | 2020-04-25 12:21 | SUR.PHASEI ---
1218 PATIENT TO PACU FROM OR. RR EVEN AND UNLABORED. SPO2 97% ON RA. PRESSURE DRESSING TO LEFT CHEST, CDI. PATIENT DENIES PAIN.
--- NOTE | 2020-04-25 12:30 | PM.PACU ---
PACU note Post-Anesthesia Exam: awake and vital signs stable Disposition: back to floor
--- NOTE | 2020-04-25 12:41 | SUR.PHASEI ---
1232 PATIENT TO CSU. DENIES PAIN. PRESSURE DRESSING TO LEFT CHEST, CDI. PATIENT AMBULATORY FROM [facility] TO BED WITH STEADY GAIT.
--- NOTE | 2020-04-25 13:00 | P.PN_ITS ---
Subjective Subjective: Interval history: OR this AM for pacemaker battery replacement. Seen after return from OR, in good spirits, no complaints. Medications: Reviewed: Yes Medication Review Details: Active Medications Generic Name Dose Route Start Last Admin Trade Name Freq PRN Reason Stop Dose Admin Acetaminophen 650 mg 04/23/20 17:38 04/24/20 11:35 Tylenol PO 650 mg Q6H PRN Administration Mild/Mod Pain Or Temp >/= 101 Hydrocodone Bitart /Acetaminophen 1 tab 04/25/20 12:54 [place] 5-325 Mg PO Q4H PRN MODERATE PAIN Diphenhydramine HC l 25 mg 04/23/20 18:00 04/24/20 17:11 Benadryl PO 25 mg BID [facility] Administration Duloxetine HCl 60 mg 04/24/20 09:00 04/24/20 08:16 Cymbalta PO 60 mg DAILY [facility] Administration Cefazolin Sodium 1 ,000 mg/ 50 mls @ 100 mls/ hr 04/25/20 19:30 Sodium Chloride IV 04/26/20 11:59 Q8H [facility] Protocol Levalbuterol HCl 0.63 mg 04/23/20 18:04 04/24/20 21:57 Xopenex INHALATION 0.63 mg Q4H.RESPIRATORY P RN Administration SHORTNESS OF ARUN TH Lorazepam 2 mg 04/24/20 09:00 04/24/20 08:16 Ativan PO 2 mg DAILY [facility] Administration Losartan Potassium 50 mg 04/24/20 09:00 04/24/20 08:15 Cozaar PO 50 mg DAILY [facility] Administration Mirtazapine 45 mg 04/23/20 17:47 04/24/20 20:47 Remeron PO 45 mg BEDTIME PRN Administration Sleep Morphine Sulfate 2 mg 04/23/20 17:38 Morphine IVP Q4H PRN SEVERE PAIN Mupirocin 1 applic 04/24/20 09:00 04/24/20 17:14 Bactroban TOPICAL Not Given BID [facility] Non-Formulary Medi cation 1 tab 04/25/20 12:54 Aspirin-Acetamin ophen-Caffeine [He adache Relief (Asa -Acet-Caf)] PO Q6H PRN Headache Ondansetron HCl 4 mg 04/24/20 18:40 04/25/20 02:03 Zofran IVP 4 mg Q4H PRN Administration NAUSEA AND VOMITI NG Ondansetron HCl 4 mg 04/25/20 12:54 Zofran PO TID PRN n/v Pantoprazole Sodiu m 40 mg 04/24/20 09:00 04/24/20 08:16 Protonix PO 40 mg DAILY [facility] Administration Tizanidine HCl 4 mg 04/23/20 17:38 04/24/20 20:47 Zanaflex PO 4 mg TID PRN Administration muscle spasms Beta-Blockers (Beta-Adrenergic Bloc Allergy (Verified 04/23/20 13:49) Unknown erythromycin base Allergy (Verified 04/23/20 13:49) ALGY-Hives Vitals/I&O/Wt Last Vital Signs Temp 99.4 F 04/25/20 12:30 Pulse 79 04/25/20 12:30 Resp 18 04/25/20 12:30 BP 165/96 04/25/20 12:30 Pulse Ox 97 04/25/20 12:30 04/24/20 04/25/20 04/25/20 22:59 06:59 14:59 Intake Total 50 / 50 Output Total 0 / 0 Balance 50 / 50 Weight last 48 hrs Weight 41.901 kg Physical Exam Const: COMMON NORMALS: no acute distress, patient oriented x3 and alert GENERAL APPEARANCE: cooperative and comfortable NUTRITIONAL APPEARANCE: thin ORIENTATION/CONSCIOUSNESS: Yes awake OTHER: -very pleasant HENMT: COMMON NORMALS: normocephalic, atraumatic, hearing grossly normal kev aterally and moist oral mucous membranes HEAD & SCALP: normocephalic and atraumatic Eye: COMMON NORMALS: Equal, round and reactive pupils present, EOMs intact bilaterally and conjunctivae normal CONJUNCTIVA: Yes conjunctivae normal PUPIL: Yes Equal, round and reactive pupils present Neck/C-Spine: COMMON NORMALS: full ROM GENERAL: Yes normal visual inspection and Yes trachea midline Chest: CHEST: Yes Pacemaker present (clean dressing in place) Resp: COMMON NORMALS: normal respiratory effort, No retractions, No use of accessory muscles and clear to auscultation bilaterally EFFORT & INSPECTION: Yes able to speak in complete sentences, Yes symmetric chest movement and No tachypneic AUSCULTATION: clear to auscultation bilaterally Cardio: COMMON NORMALS: regular rate, regular rhythm, S1 normal heart sound present, S2 normal heart sound present and No murmurs present (Cardio) RATE: regular rate RHYTHM: regular rhythm HEART SOUNDS: S1 normal heart sound present and S2 normal heart sound present GI: COMMON NORMALS: Normal to inspection, nondistended, normoactive bowel sounds present, Soft to palpation and non-tender PALPATION: Yes Soft to palpation Extremity: COMMON NORMALS: normal to inspection, full ROM and no clubbing, cya nosis or edema; negative for no pedal edema Neuro: COMMON NORMALS: patient oriented x3, moves all extremities, no focal m otor deficits, no sensory deficits noted and gait normal SENSORIUM/ORIENTATION: Yes alert Psych: COMMON NORMALS: mental status grossly normal, Normal thought process present, cooperative, normal affect and speech normal SPEECH: Yes normal speech THOUGHT PROCESS: Normal thought process present Skin: COMMON NORMALS: no rashes or lesions noted, no jaundice, no petechiae and no mottling GENERAL SKIN EXAM: no rashes or lesions noted Data : 04/24/20 03:12 04/24/20 03:12 A&P Assessment and plan (1) Pacemaker: -pacemaker interrogation done in ER confirming that battery is at its end, recommended date of replacement was February 26, 2020 -Telemetry monitoring -Cardiology input appreciated; battery replacement today by Dr. Roberts; NPO after midnight -Close monitoring of vital signs -screened for COVID-19: negative; PCR pending Status: Acute (2) Dysphagia: -Reported history of chronic dysphasia particularly to solids, has been on a full liquid diet -Has had multiple EGDs with prior esophageal dilatation procedures, pending possible esophagectomy -Aspiration precautions, on full liquid diet Status: Chronic Qualifiers: Dysphagia type: unspecified Qualified Code(s): R13.10 - Dysphagia, unspecified (3) Protein calorie malnutrition: -At least moderate protein calorie malnutrition in light of chronic dysphagia and associated weight loss -Unable to tolerate Ensure per her own admission Status: Chronic Qualifiers: Protein-calorie malnutrition severity: moderate Qualified Code(s): E44.0 - Moderate protein-calorie malnutrition (4) Hypertension: -Vital signs stable, continue to monitor -was hypertensive at home which is unusual for her -continue oral antihypertensives Status: Acute Qualifiers: Hypertension type: essential hypertension Qualified Code(s): I10 - Essential (primary) hypertension Additional A&P Information -FLD; NPO after midnight -GI ppx with PPI -DVT ppx with lovenox -Dispo: home -Code status: FULL code Attestations Medical Necessity Statement*: Patient requires hospitalization for continued monitoring post pacemaker generator replacement. Time Spent in Patient Care: 16 - 35 minutes (>than 50% of time spent in counselling and/or direct pt care on unit) . Coding Level of Care Code Acute [employer] Clerk for Chg Fwd Exam Comprehensive Diagnoses Pacemaker Z95.0 Dysphagia R13.10 Dysphagia type: unspecified Protein calorie malnutrition E44.0 Protein-calorie malnutrition severity: moderate Hypertension I10 Hypertension type: essential hypertension
[2020-04-25] MEDS: mupirocin oint 22 gm 1 APPLIC TOPICAL ×2 (13:06→18:08)
[2020-04-25] MEDS: acetaminophen 325 mg Tablet 650 MG PO (13:07)
[2020-04-25] MEDS: losartan 50 mg Tablet PO (13:08)
[2020-04-25] MEDS: duloxetine 60 mg Capsule PO (13:08)
[2020-04-25] MEDS: tizanidine 4 mg Tablet PO ×2 (13:08→22:21)
[2020-04-25] MEDS: pantoprazole DR 40 mg Tablet PO (13:08)
[2020-04-25] MEDS: LORazepam 2 mg Tablet PO (13:13)
--- NOTE | 2020-04-25 13:34 | PC.NURSE ---
return from or s/p pacemaker battery change at 1240.report received.pt is alert and awake.100% v-paced on monitor.denies pain at present.left upper chest bulky drsg is dry and intact.no hematoma formation noted.swallowing liquids w/o difficulty.instructed to limit activity with left arm..keep hob elevated 30 degrees..and instructed to notify staff for any bleeding,pain,need to use restroom,or for any concerns at all..pt verb understanding of instructions.
[2020-04-25] MEDS: diphenhydrAMINE 25 mg Capsule PO (18:08)
[2020-04-25 19:45] LABS: Coronavirus Lab Test PTC Negative
--- NOTE | 2020-04-25 19:51 | PM.PN ---
Subjective Subjective: Interval history: No acute events Medications: Reviewed: Yes Medication Review Details: Current Medications Acetaminophen (Tylenol) 650 mg PO Q6H PRN PRN Reason: Mild/Mod Pain Or Temp >/= 101 Last Admin: 04/25/20 13:07 Dose: 650 mg Documented by: Hydrocodone Bitart/Acetaminophen ([place] 5-325 Mg) 1 tab PO Q4H PRN PRN Reason: MODERATE PAIN Diphenhydramine HCl (Benadryl) 25 mg PO BID [facility] Last Admin: 04/25/20 18:08 Dose: 25 mg Documented by: Duloxetine HCl (Cymbalta) 60 mg PO DAILY [facility] Last Admin: 04/25/20 13:08 Dose: 60 mg Documented by: Cefazolin Sodium 1,000 mg/ (Sodium Chloride) 50 mls @ 100 mls/hr IV Q8H [facility]; Protocol Stop: 04/26/20 11:59 Levalbuterol HCl (Xopenex) 0.63 mg INHALATION Q4H.RESPIRATORY PRN PRN Reason: SHORTNESS OF BREATH Last Admin: 04/24/20 21:57 Dose: 0.63 mg Documented by: Lorazepam (Ativan) 2 mg PO DAILY [facility] Last Admin: 04/25/20 13:13 Dose: 2 mg Documented by: Losartan Potassium (Cozaar) 50 mg PO DAILY [facility] Last Admin: 04/25/20 13:08 Dose: 50 mg Documented by: Mirtazapine (Remeron) 45 mg PO BEDTIME PRN PRN Reason: Sleep Last Admin: 04/24/20 20:47 Dose: 45 mg Documented by: Morphine Sulfate (Morphine) 2 mg IVP Q4H PRN PRN Reason: SEVERE PAIN Mupirocin (Bactroban) 1 applic TOPICAL BID [facility] Last Admin: 04/25/20 18:08 Dose: 1 applic Documented by: Non-Formulary Medication (Jukmbts-Ndlvzvgzclktm-Ehazqmxf [Headache Relief (Ebq-Izpi-Uwg)]) 1 tab PO Q6H PRN PRN Reason: Headache Ondansetron HCl (Zofran) 4 mg IVP Q4H PRN PRN Reason: NAUSEA AND VOMITING Last Admin: 04/25/20 02:03 Dose: 4 mg Documented by: Ondansetron HCl (Zofran) 4 mg PO TID PRN PRN Reason: n/v Pantoprazole Sodium (Protonix) 40 mg PO DAILY [facility] Last Admin: 04/25/20 13:08 Dose: 40 mg Documented by: Tizanidine HCl (Zanaflex) 4 mg PO TID PRN PRN Reason: muscle spasms Last Admin: 04/25/20 13:08 Dose: 4 mg Documented by: Vitals/I&O/Wt Last Vital Signs Temp 98.0 F 04/25/20 15:10 Pulse 84 04/25/20 15:10 Resp 30 H 04/25/20 15:10 BP 133/73 04/25/20 15:10 Pulse Ox 92 04/25/20 15:10 04/25/20 04/25/20 04/25/20 06:59 14:59 22:59 Intake Total 50 / 50 1260 / 1310 Output Total 0 / 0 250 / 250 Balance 50 / 50 1010 / 1060 Weight last 48 hrs Weight 92 lb 6 oz Physical Exam Const: COMMON NORMALS: no acute distress, patient oriented x3 and alert GENERAL APPEARANCE: cooperative, comfortable, well kempt and well hydrated HENMT: COMMON NORMALS: normocephalic, atraumatic and external ears normal HEAD & SCALP: normocephalic and atraumatic EXTERNAL EAR: Yes external ears normal MOUTH: lip normal Eye: COMMON NORMALS: Equal, round and reactive pupils present, EOMs intact bilaterally, conjunctivae normal and no scleral icterus GENERAL EYE: appearance normal, both eyes and all related structures ALIGNMENT: Yes alignment normal EYELID: eyelids normal CONJUNCTIVA: Yes conjunctivae normal SCLERA: sclerae normal PUPIL: Yes Equal, round and reactive pupils present Neck/C-Spine: COMMON NORMALS: Thyroid normal GENERAL: Yes normal visual inspection and No Mass present (neck) THYROID: Thyroid normal CAROTIDS: Yes normal carotid upstroke CERVICAL SPINE: Yes cervical ROM normal Lymph: LYMPHATIC: no lymphadenopathy noted Chest: COMMONS NORMALS: normal inspection of the chest and normal palpation of entire chest wall CHEST: Yes Symmetrical chest wall rise, No mass, No tenderness, No Surgical scars present (Chest) and No rash BREAST/AXILLA INSPECTION: Yes normal inspection of the axillae Resp: COMMON NORMALS: clear to auscultation bilaterally and percussion normal AUSCULTATION: clear to auscultation bilaterally, no crackles, no rales, no rhonchi, no wheezes, vesicular breath sounds and other (left upper chest PPM in situ) PERCUSSION: percussion normal Cardio: COMMON NORMALS: regular rate, regular rhythm, S1 normal heart sound present, S2 normal heart sound present and Peripheral pulses 2+ throughout PALPATION: normal PMI RATE: regular rate RHYTHM: regular rhythm HEART SOUNDS: S1 normal heart sound present, S2 normal heart sound present, no gallops and no murmurs BRUITS: no carotid bruits PERIPHERAL PULSES: Peripheral pulses 2+ throughout, radial pulses present, posterior tibial pulses present and dorsalis pedis present Extremity: GENERAL: No cyanosis, Yes edema and No pallor Neuro: COMMON NORMALS: patient oriented x3 SENSORIUM/ORIENTATION: Yes alert Psych: COMMON NORMALS: Normal thought process present and speech normal APPEARANCE: Yes well kempt SPEECH: Yes normal speech MOOD & AFFECT: Yes euthymic mood THOUGHT PROCESS: Normal thought process present THOUGHT CONTENT: Yes Normal thought content present Data : 04/24/20 03:12 04/24/20 03:12 A&P Assessment and plan (1) Pacemaker generator end of life: -Plan for PPM gen change today as per Dr. Roberts. Rapid SARS CoV antigen negative, PCR pending -continue to monitor closely in the interim. Status: Acute (2) Pacemaker: s/p PPM placement in 2009 Status: Acute (3) Hypertension: Status: Acute Qualifiers: Hypertension type: essential hypertension Qualified Code(s): I10 - Essential (primary) hypertension (4) Protein calorie malnutrition: Status: Chronic Qualifiers: Protein-calorie malnutrition severity: moderate Qualified Code(s): E44.0 - Moderate protein-calorie malnutrition Additional A&P Information Dysphasia h/o esophageal stricture h/o Achalasia s/p surgery Anemia Thank you for allowing me to participate in patient's care. Please feel free to call with questions or concerns. 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
[2020-04-25] MEDS: ceFAZolin 1,000 MG in sodium chloride 0.9% (plus) 50 ML 100 MG IV (20:02)
[2020-04-25] MEDS: levalbuterol 0.63 mg/3 mL Neb INHALATION (21:36)
[2020-04-25] MEDS: mirtazapine 15 mg Tablet 45 MG PO (22:21)
[2020-04-25] MEDS: ondansetron 4 MG Tablet PO (22:21)
[2020-04-26] VITALS (7 sets, daily range): BP systolic 131–174; BP diastolic 82–100; PULSE 80–87; RESP 17–22; TEMP 36.6–36.8; O2SAT 96–98
[2020-04-26] MEDS: ceFAZolin 1,000 MG in sodium chloride 0.9% (plus) 50 ML 100 MG IV ×2 (02:30→11:06)
[2020-04-26] MEDS: ondansetron 2 mg/ML SDV 2 mL 4 MG IVP ×2 (04:32→11:56)
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
--- NOTE | 2020-04-26 07:23 | PC.NURSE ---
Patient resting in bed with eyes closed, even nonlabored breathing. Patient awake during physical assessment. Patient denies any pain. No needs identified at this time. Nurse to continue to monitor.
[2020-04-26] MEDS: levalbuterol 0.63 mg/3 mL Neb INHALATION (07:54)
[2020-04-26] MEDS: pantoprazole DR 40 mg Tablet PO (08:47)
[2020-04-26] MEDS: LORazepam 2 mg Tablet PO (08:47)
[2020-04-26] MEDS: diphenhydrAMINE 25 mg Capsule PO (08:47)
[2020-04-26] MEDS: losartan 50 mg Tablet PO (08:47)
[2020-04-26] MEDS: duloxetine 60 mg Capsule PO (08:53)
--- NOTE | 2020-04-26 08:58 | ANE.PACU2 ---
Inpatient post-anesthesia follow up: Airway intact: Yes Vital signs: Temperature 98.3 F Pulse Rate [Monito r] 65 Pulse Rate 87 Respiratory Rate 18 Blood Pressure [Ri ght Arm] 172/102 Blood Pressure 166/92 Pulse Oximetry 96 Oxygen Delivery Me thod Room Air Oxygen Flow Rate Fraction of Inspir ed Oxygen Hydration adequate: Yes Nausea and vomiting: No Pain level: 1 Mental status: Baseline
--- NOTE | 2020-04-26 09:10 | PC.SOCIAL ---
IMM Page 2 of IMM explained to patient. She verbalizes understanding and signs the IMM. Initialed, dated, and timed and placed in chart. Copy provided to patient.
--- NOTE | 2020-04-26 09:34 | PM.PN ---
Subjective Subjective: Interval history: Patient did well overnight, no complaints, quite eager to go home today. Remains on room air, hemodynamically stable. Requesting refill of her Ativan on discharge. Medications: Reviewed: Yes Medication Review Details: Active Medications Generic Name Dose Route Start Last Admin Trade Name Freq PRN Reason Stop Dose Admin Acetaminophen 650 mg 04/23/20 17:38 04/25/20 13:07 Tylenol PO 650 mg Q6H PRN Administration Mild/Mod Pain Or Temp >/= 101 Hydrocodone Bitart /Acetaminophen 1 tab 04/25/20 12:54 [facility] 5-325 Mg PO Q4H PRN MODERATE PAIN Diphenhydramine HC l 25 mg 04/23/20 18:00 04/26/20 08:47 Benadryl PO 25 mg BID [facility] Administration Duloxetine HCl 60 mg 04/24/20 09:00 04/26/20 08:53 Cymbalta PO 60 mg DAILY [facility] Administration Cefazolin Sodium 1 ,000 mg/ 50 mls @ 100 mls/ hr 04/25/20 19:30 04/26/20 03:00 Sodium Chloride IV 04/26/20 11:59 Infused Q8H [facility] Infusion Protocol Levalbuterol HCl 0.63 mg 04/23/20 18:04 04/26/20 07:54 Xopenex INHALATION 0.63 mg Q4H.RESPIRATORY P RN Administration SHORTNESS OF ARUN TH Lorazepam 2 mg 04/24/20 09:00 04/26/20 08:47 Ativan PO 2 mg DAILY [facility] Administration Losartan Potassium 50 mg 04/24/20 09:00 04/26/20 08:47 Cozaar PO 50 mg DAILY [facility] Administration Mirtazapine 45 mg 04/23/20 17:47 04/25/20 22:21 Remeron PO 45 mg BEDTIME PRN Administration Sleep Morphine Sulfate 2 mg 04/23/20 17:38 Morphine IVP Q4H PRN SEVERE PAIN Mupirocin 1 applic 04/24/20 09:00 04/26/20 08:48 Bactroban TOPICAL Not Given BID [facility] Non-Formulary Medi cation 1 tab 04/25/20 12:54 Aspirin-Acetamin ophen-Caffeine [He adache Relief (Asa -Acet-Caf)] PO Q6H PRN Headache Ondansetron HCl 4 mg 04/24/20 18:40 09/03/20 04:32 Zofran IVP 4 mg Q4H PRN Administration NAUSEA AND VOMITI NG Ondansetron HCl 4 mg 04/25/20 12:54 04/25/20 22:21 Zofran PO 4 mg TID PRN Administration n/v Pantoprazole Sodiu m 40 mg 04/24/20 09:00 04/26/20 08:47 Protonix PO 40 mg DAILY [facility] Administration Tizanidine HCl 4 mg 04/23/20 17:38 04/25/20 22:21 Zanaflex PO 4 mg TID PRN Administration muscle spasms Beta-Blockers (Beta-Adrenergic Bloc Allergy (Verified 04/23/20 13:49) Unknown erythromycin base Allergy (Verified 04/23/20 13:49) ALGY-Hives Vitals/I&O/Wt Last Vital Signs Temp 98.3 F 04/26/20 07:19 Pulse 87 04/26/20 08:03 Resp 18 04/26/20 08:03 BP 166/92 04/26/20 08:47 Pulse Ox 96 04/26/20 08:03 04/25/20 04/26/20 04/26/20 22:59 06:59 14:59 Intake Total 1310 / 1360 150 / 1510 120 / 120 Output Total 250 / 250 Balance 1060 / 1110 150 / 1260 120 / 120 Weight last 48 hrs Weight 43.091 kg Physical Exam Const: COMMON NORMALS: no acute distress, patient oriented x3 and alert GENERAL APPEARANCE: cooperative and comfortable NUTRITIONAL APPEARANCE: thin ORIENTATION/CONSCIOUSNESS: Yes awake OTHER: -very pleasant HENMT: COMMON NORMALS: normocephalic, atraumatic, hearing grossly normal bilaterally and moist oral mucous membranes HEAD & SCALP: normocephalic and atraumatic Eye: COMMON NORMALS: Equal, round and reactive pupils present, EOMs intact bilaterally and conjunctivae normal CONJUNCTIVA: Yes conjunctivae normal PUPIL: Yes Equal, round and reactive pupils present Neck/C-Spine: COMMON NORMALS: full ROM GENERAL: Yes normal visual inspection and Yes trachea midline Chest: CHEST: Yes Pacemaker present (clean dressing in place) Resp: COMMON NORMALS: normal respiratory effort, No retractions, No use of accessory muscles and clear to auscultation bilaterally EFFORT & INSPECTION: Yes able to speak in complete sentences, Yes symmetric chest movement and No tachypneic AUSCULTATION: clear to auscultation bilaterally Cardio: COMMON NORMALS: regular rate, regular rhythm, S1 normal heart sound present, S2 normal heart sound present and No murmurs present (Cardio) RATE: regular rate RHYTHM: regular rhythm HEART SOUNDS: S1 normal heart sound present and S2 normal heart sound present GI: COMMON NORMALS: Normal to inspection, nondistended, normoactive bowel sounds present, Soft to palpation and non-tender PALPATION: Yes Soft to palpation Extremity: COMMON NORMALS: normal to inspection, full ROM and no clubbing, cyanosis or edema; negative for no pedal edema Neuro: COMMON NORMALS: patient oriented x3, moves all extremities, no focal motor deficits, no sensory deficits noted and gait normal SENSORIUM/ORIENTATION: Yes alert Psych: COMMON NORMALS: mental status grossly normal, Normal thought process present, cooperative, normal affect and speech normal SPEECH: Yes normal speech THOUGHT PROCESS: Normal thought process present Skin: COMMON NORMALS: no rashes or lesions noted, no jaundice, no petechiae and no mottling GENERAL SKIN EXAM: no rashes or lesions noted Data : 04/24/20 03:12 04/24/20 03:12 A&P Assessment and plan (1) Pacemaker: -pacemaker interrogation done in ER confirming that battery is at its end, recommended date of replacement was February 26, 2020 -Telemetry monitoring -Cardiology input appreciated; s/p generator replacement by Dr. Roberts (04/25) -Close monitoring of vital signs -screened for COVID-19: negative; PCR negative Status: Acute (2) Dysphagia: -Reported history of chronic dysphasia particularly to solids, has been on a full liquid diet -Has had multiple EGDs with prior esophageal dilatation procedures, pending possible esophagectomy -Aspiration precautions, on full liquid diet Status: Chronic Qualifiers: Dysphagia type: unspecified Qualified Code(s): R13.10 - Dysphagia, unspecified (3) Protein calorie malnutrition: -At least moderate protein calorie malnutrition in light of chronic dysphagia and associated weight loss -Unable to tolerate Ensure per her own admission Status: Chronic Qualifiers: Protein-calorie malnutrition severity: moderate Qualified Code(s): E44.0 - Moderate protein-calorie malnutrition (4) Hypertension: -Vital signs stable, continue to monitor -was hypertensive at home which is unusual for her -continue oral antihypertensives Status: Acute Qualifiers: Hypertension type: essential hypertension Qualified Code(s): I10 - Essential (primary) hypertension Additional A&P Information -FLD -GI ppx with PPI -DVT ppx with lovenox -Dispo: home -Code status: FULL code Attestations Medical Necessity Statement*: Discharge home today Time Spent in Patient Care: less than 15 minutes Coding Level of Care Code Acute Database Developer for Chg Fwd Exam Comprehensive Diagnoses Pacemaker Z95.0 Dysphagia R13.10 Dysphagia type: unspecified Protein calorie malnutrition E44.0 Protein-calorie malnutrition severity: moderate Hypertension I10 Hypertension type: essential hypertension
--- NOTE | 2020-04-26 11:31 | PC.NURSE ---
Discharge instructions given per the physician's orders. Patient verbalized understanding of discharge information and did not have any further questions. Nurse to continue to monitor.
--- NOTE | 2020-04-26 13:55 | PM.PN ---
Subjective Subjective: Interval history: S/p generator change by Dr. Roberts yesterday Medications: Reviewed: Yes Vitals/I&O/Wt Last Vital Signs Temp 97.8 F 04/26/20 12:15 Pulse 80 04/26/20 12:15 Resp 17 04/26/20 12:15 BP 131/82 04/26/20 12:15 Pulse Ox 98 04/26/20 12:15 04/25/20 04/26/20 04/26/20 22:59 06:59 14:59 Intake Total 1310 / 1360 150 / 1510 170 / 170 Output Total 250 / 250 Balance 1060 / 1110 150 / 1260 170 / 170 Weight last 48 hrs Weight 95 lb Physical Exam Const: COMMON NORMALS: no acute distress, patient oriented x3 and alert GENERAL APPEARANCE: cooperative, comfortable, well kempt and well hydrated HENMT: COMMON NORMALS: normocephalic, atraumatic and external ears normal HEAD & SCALP: normocephalic and atraumatic EXTERNAL EAR: Yes external ears normal MOUTH: lip normal Eye: COMMON NORMALS: Equal, round and reactive pupils present, EOMs intact bilaterally, conjunctivae normal and no scleral icterus GENERAL EYE: appearance normal, both eyes and all related structures ALIGNMENT: Yes alignment normal CONJUNCTIVA: Yes conjunctivae normal SCLERA: sclerae normal PUPIL: Yes Equal, round and reactive pupils present Neck/C-Spine: CAROTIDS: Yes normal carotid upstroke Resp: COMMON NORMALS: clear to auscultation bilaterally AUSCULTATION: clear to auscultation bilaterally, no crackles, no rales, no rhonchi, no wheezes, vesicular breath sounds and other (left upper chest PPM in situ) Cardio: COMMON NORMALS: regular rate, regular rhythm, S1 normal heart sound present, S2 normal heart sound present and Peripheral pulses 2+ throughout PALPATION: normal PMI RATE: regular rate RHYTHM: regular rhythm HEART SOUNDS: S1 normal heart sound present, S2 normal heart sound present, no gallops and no murmurs BRUITS: no carotid bruits PERIPHERAL PULSES: Peripheral pulses 2+ throughout, radial pulses present, posterior tibial pulses present and dorsalis pedis present Extremity: GENERAL: Yes edema and No pallor Neuro: COMMON NORMALS: patient oriented x3 SENSORIUM/ORIENTATION: Yes alert Psych: COMMON NORMALS: Normal thought process present and speech normal APPEARANCE: Yes well kempt SPEECH: Yes normal speech MOOD & AFFECT: Yes euthymic mood THOUGHT PROCESS: Normal thought process present THOUGHT CONTENT: Yes Normal thought content present Data : 04/24/20 03:12 04/24/20 03:12 A&P Assessment and plan (1) Pacemaker generator end of life: -s/p PPM gen change by Dr. Roberts. Rapid SARS CoV antigen negative, PCR negative. -normal device function on interrogation. Status: Acute (2) Pacemaker: s/p PPM placement in 2009 Status: Acute (3) Hypertension: Status: Acute Qualifiers: Hypertension type: essential hypertension Qualified Code(s): I10 - Essential (primary) hypertension (4) Protein calorie malnutrition: Status: Chronic Qualifiers: Protein-calorie malnutrition severity: moderate Qualified Code(s): E44.0 - Moderate protein-calorie malnutrition Additional A&P Information Dysphasia h/o esophageal stricture h/o Achalasia s/p surgery Anemia Thank you for allowing me to participate in patient's care. Please feel free to call with questions or concerns. Attestations Medical Necessity Statement*: stable to be discharged from cardiac stand point. 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
== END 2020-04-26 12:16 | disposition home or self-care (01) | DRG 258 ==
LOC: ER 13:42 → CSU 17:06
PROVIDERS: Nurse Practitioner Family; Thoracic Surgery (Cardiothoracic Vascular Surgery); Admitting Provider Family Medicine; Visit Provider Family Medicine
PROC: 0JPT0PZ Removal of Cardiac Rhythm Related Device from Trunk Subcutaneous Tissue and Fascia, Open Approach (ICD-10-PCS; principal; 2020-04-25 10:40)
DX: Z45.010 Encounter for checking and testing of cardiac pacemaker pulse generator [battery] (principal); E43 Unspecified severe protein-calorie malnutrition; K52.9 Noninfective gastroenteritis and colitis, unspecified; I10 Essential (primary) hypertension; Z87.891 Personal history of nicotine dependence; F12.90 Cannabis use, unspecified, uncomplicated; D64.9 Anemia, unspecified; R13.10 Dysphagia, unspecified; Z90.49 Acquired absence of other specified parts of digestive tract
CPT/HCPCS: 12345; 36415; 71045; 71046; 80048; 80053; 83735; 84443; 85025; 85610; 87426; 87635; 93005; 93306; 94640; 94664; 96372; 96375; 99282; C1786; G0378; J0690; J1650; J2250; J2405; J2704; J3010; J7030; J7614; J7644; Q0162